=== PATIENT | female | born 2000 | race Caucasian/White ===

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

== ENCOUNTER → 2022-06-13 | Outpatient (CLI) | payer BC ==
[2022-06-13 12:58] LABS: HCT 38.4 % (37.2-46.3); HGB 12.3 g/dL (12.0-15.0); MCH 25.9 pg (27.0-32.0); MCV 80.8 fL (80.0-97.0); NRBC Per 100 WBC 0 /100 WBCS (0.0-0.0); Platelet Count 391 X 10*3/uL (140-440); RBC 4.75 X 10*6/uL (4.10-5.20); RDW 13.2 % (11.5-14.5); WBC 8.01 X 10*3/uL (4.50-10.00)
[2022-06-13 13:17] LABS: ALT 14 U/L (8-44); AST 19 U/L (13-35); African American GFR (CKD) 129.4 (60.0-200.0); Albumin 4.3 g/dL (3.8-4.9); Alkaline Phosphatase 47 U/L (41-126); BUN/Creat Ratio 9.24 Ratio (12.00-20.00); Blood Urea Nitrogen 7.1 mg/dL (9.0-27.0); Calcium 9.8 mg/dL (8.7-10.3); Carbon Dioxide 24.6 mmol/L (20.0-27.5); Chloride 104 mmol/L (96-109); Globulin 3.1 g/dL (1.6-3.3); Glucose 94 mg/dL (70-110); LDL Cholesterol,Calculated 103.8 mg/dL (0.0-131.0); Non-African American GFR(CKD) 111.7 (60.0-200.0); Potassium 4.3 mmol/L (3.5-5.5); Sodium 140 mmol/L (135-145); Total Protein 7.4 g/dL (6.2-8.2)
== END | disposition home or self-care (01) ==
LOC: LABWHC1 10:06
PROVIDERS: ATTEND Nurse Practitioner Family
DX: Z00.00 Encounter for general adult medical examination without abnormal findings (principal)
CPT/HCPCS: 36415; 80053; 80061; 83036; 84443; 85027

== ENCOUNTER → 2022-12-04 | Outpatient (CLI) | payer BC ==
--- NOTE | 2022-12-04 15:23 | US ---
EXAMINATION TYPE: US transvaginal DATE OF EXAM: 12/04/2022 COMPARISON: NONE CLINICAL INDICATION: Female, 22 years old with history of R10.2 PELVIC PAIN; Pt states cramping in be tween menses TECHNIQUE: Transvaginal (TV). Transvaginal sonographic images of the pelvis were acquired. Date of LMP: 3 weeks ago EXAM MEASUREMENTS: Uterus: 6.1 x 2.4 x 3.7 cm Endometrial Stripe: 0.3 cm Right Ovary: 2.3 x 1.6 x 1.5 cm 1. Uterus: Anteverted wnl 2. Endometrium: wnl 3. Right Ovary: wnl 4. Left Ovary: Obscured by overlying bowel gas 5. Bilateral Adnexa: wnl 6. Posterior cul-de-sac: wnl IMPRESSION: No acute process
== END | disposition home or self-care (01) ==
LOC: RADUSWWP 14:43
PROVIDERS: ATTEND Family Medicine
DX: R10.2 Pelvic and perineal pain (principal)
CPT/HCPCS: 76830